=== PATIENT | female | born 1995 | race Caucasian/White ===

== ENCOUNTER 2022-09-11 10:43 | Emergency (ER) | payer SELFPAY ==
[2022-09-11] MEDS ORDERED: Acetaminophen 325 MG Tab PO ONE (11:19)
== END 2022-09-11 13:20 | disposition home or self-care (01) ==
LOC: JD.ED 10:43
DX: S06.0X0A Concussion without loss of consciousness, initial encounter (principal); S16.1XXA Strain of muscle, fascia and tendon at neck level, initial encounter; I10 Essential (primary) hypertension; F17.210 Nicotine dependence, cigarettes, uncomplicated; W01.10XA Fall on same level from slipping, tripping and stumbling with subsequent striking against unspecified object, initial encounter
CPT/HCPCS: 70450; 72125; 99283; A9270

== ENCOUNTER 2022-10-28 09:44 | Emergency (ER) | payer OTHER ==
[2022-10-28] MEDS ORDERED: Famotidine 20 MG/2 ML SDV IVPUSH ONE (10:15)
[2022-10-28] MEDS ORDERED: Lactated Ringers 1,000 ML IV ONE (10:15)
[2022-10-28] MEDS ORDERED: Alum Hydrox/Mag Hydrox/Simeth 30 ML, Lidocaine 2% 15 ML PO ONE ×2 (10:15)
== END 2022-10-28 13:38 | disposition home or self-care (01) ==
LOC: JD.ED 09:44
DX: R10.13 Epigastric pain (principal); I10 Essential (primary) hypertension; Z79.899 Other long term (current) drug therapy
CPT/HCPCS: 36415; 76705; 80053; 81003; 83605; 83690; 84703; 85025; 96361; 96374; 99284; A9270; J3490; J7120

== ENCOUNTER 2022-11-02 23:39 | Emergency (ER) | payer OTHER ==
[2022-11-03] MEDS ORDERED: Ondansetron 4 MG/2 ML SDV IVPUSH ONE (00:52)
[2022-11-03] MEDS ORDERED: Sodium Chloride 0.9% 10 ML Syringe FLUSH PRN (00:52)
[2022-11-03] MEDS ORDERED: Sodium Chloride 0.9% 1,000 ML IV SCH (01:00)
[2022-11-03 01:15] LABS: ESTIMATED GFR 72 mL/min (>60)
[2022-11-03] MEDS ORDERED: Alum Hydrox/Mag Hydrox/Simeth 30 ML, Lidocaine 2% 15 ML PO ONE ×2 (02:15)
[2022-11-03] MEDS ORDERED: Pantoprazole 40 MG Vial IVPUSH ONE (02:17)
[2022-11-03] MEDS ORDERED: Sucralfate Suspension 1 GM/10 ML Cup PO ONE (02:55)
== END 2022-11-03 03:40 | disposition home or self-care (01) ==
LOC: JD.ED 23:39
DX: K20.90 Esophagitis, unspecified without bleeding (principal); K29.70 Gastritis, unspecified, without bleeding; I10 Essential (primary) hypertension; E66.9 Obesity, unspecified; Z68.44 Body mass index [BMI] 60.0-69.9, adult; Z79.899 Other long term (current) drug therapy
CPT/HCPCS: 36415; 80053; 83690; 83735; 84702; 85025; 86140; 99284; A9270; 99283

== ENCOUNTER 2023-10-25 11:46 | Emergency (ER) | payer SELFPAY ==
[2023-10-25] MEDS: Diphtheria,Pertussis(Acell),Tetanus Vaccine 0.5 ML Syringe IM ONE (12:44)
== END 2023-10-25 13:40 | disposition home or self-care (01) ==
LOC: JD.ED 11:46
DX: S61.452A Open bite of left hand, initial encounter (principal); Z23 Encounter for immunization; I10 Essential (primary) hypertension; E66.9 Obesity, unspecified; Z79.899 Other long term (current) drug therapy; Z68.43 Body mass index [BMI] 50.0-59.9, adult; W54.0XXA Bitten by dog, initial encounter
CPT/HCPCS: 73130-26-LT; 73130-LT; 90471; 90715; 99283-25